=== PATIENT | female | born 1985 | race Caucasian/White ===

== ENCOUNTER → 2016-02-11 | Outpatient (CLI) | payer OTHER ==
[~2016-02-11] MED LIST: ADAL40KI SQ; ALBU18002 INH; BCPILLS PO; CLON0.5T3 PO; DICY10CA12 PO; DIPH1TAB PO; DULO60CA44 PO; EFF75 PO; EPP3/2 IM; ESZO1TAB21 PO; FEXO1TAB49 PO; HYDR-5688 PO; LEVOIUD IU; LISD20CA PO; MESA1.2T PO; MISCCAP80 PO; MRC50 PO; PRED50TA PO; TOPI50TA16 PO; TRMCR130WC TOP; VENL150C56 PO; ZOLP10TA PO
[2016-02-11 14:47] LABS: BASO % 0.1 %; BASO ABS # 0.01 K/uL (0-0.2); COMPLETE YES; EOS % 0.3 %; IG% 0.6 %; LYMPH % 14.7 %; LYMPH ABS # 1.32 K/uL (1.2-3.4); MEAN CELL VOLUME 106.5 fL (80-100); MEAN CORPUSCULAR HEMOGLOBIN 33.8 pg (25-34); MEAN CORPUSCULAR HGB CONC 31.7 g/dl (32-36); MEAN PLATELET VOLUME 10.2 fL (7.4-10.4); MONO % 1.9 %; NEUT % 82.4 %; PLATELET COUNT 346 K/uL (130-400); RED BLOOD COUNT 3.85 M/uL (4.2-5.4); WHITE BLOOD COUNT 8.96 K/uL (4.8-10.8)
[2016-02-11 15:01] LABS: ALT/SGPT 35 U/L (12-78); AST/SGOT 13 U/L (15-37); BLOOD UREA NITROGEN 12 mg/dl (7-18); BUN/CREATININE RATIO 13.9 (10-20); CALCIUM 8.8 mg/dl (8.5-10.1); CARBON DIOXIDE 23 mmol/L (21-32); CHLORIDE 106 mmol/L (98-107); CREATININE 0.88 mg/dl (0.60-1.20); GLUCOSE 162 mg/dl (70-99); POTASSIUM 4.2 mmol/L (3.5-5.1); SODIUM 138 mmol/L (136-145)
[2016-02-11 15:04] LABS: ALB/GLOB RATIO 1.1 (0.9-2); ALKALINE PHOSPHATASE 39 U/L (45-117)
== END | disposition home or self-care (01) ==
LOC: C.LAB1850 12:38
PROVIDERS: ATTEND Internal Medicine
DX: K51.90 Ulcerative colitis, unspecified, without complications (principal)

== ENCOUNTER → 2016-02-23 | Outpatient (CLI) | payer OTHER ==
[2016-02-23 13:22] LABS: BASO % 0.3 %; BASO ABS # 0.02 K/uL (0-0.2); COMPLETE YES; EOS % 0.5 %; HEMATOCRIT 42.1 % (37-47); IG% 0.5 %; LYMPH % 11.8 %; LYMPH ABS # 0.89 K/uL (1.2-3.4); MEAN CELL VOLUME 107.4 fL (80-100); MEAN CORPUSCULAR HEMOGLOBIN 34.9 pg (25-34); MEAN CORPUSCULAR HGB CONC 32.5 g/dl (32-36); MEAN PLATELET VOLUME 10.1 fL (7.4-10.4); MONO % 2.8 %; NEUT % 84.1 %; PLATELET COUNT 301 K/uL (130-400); RED BLOOD COUNT 3.92 M/uL (4.2-5.4); WHITE BLOOD COUNT 7.53 K/uL (4.8-10.8)
[2016-02-23 13:59] LABS: ALT/SGPT 58 U/L (12-78); BLOOD UREA NITROGEN 9 mg/dl (7-18); BUN/CREATININE RATIO 11.9 (10-20); C-REACTIVE PROTEIN < 0.29 mg/dl (0-0.29); CALCIUM 9.4 mg/dl (8.5-10.1); CARBON DIOXIDE 23 mmol/L (21-32); CHLORIDE 103 mmol/L (98-107); CREATININE 0.77 mg/dl (0.60-1.20); GLUCOSE 127 mg/dl (70-99); POTASSIUM 4.1 mmol/L (3.5-5.1); SODIUM 136 mmol/L (136-145)
[2016-02-23 14:10] LABS: ALB/GLOB RATIO 1.3 (0.9-2); ALKALINE PHOSPHATASE 43 U/L (45-117); AST/SGOT 29 U/L (15-37); RHEUMATOID FACTOR < 10.0 U/mL (0-15)
== END | disposition home or self-care (01) ==
LOC: C.LAB1850 12:35
PROVIDERS: ATTEND Registered Nurse
DX: K51.90 Ulcerative colitis, unspecified, without complications (principal); M25.50 Pain in unspecified joint

== ENCOUNTER → 2016-02-28 | Outpatient (CLI) | payer OTHER ==
[2016-02-28 15:52] LABS: FERRITIN 77.3 ng/ml (8.0-388.0)
== END | disposition home or self-care (01) ==
LOC: C.LAB1850 14:24
PROVIDERS: ATTEND Internal Medicine
DX: K51.90 Ulcerative colitis, unspecified, without complications (principal)

== ENCOUNTER → 2016-03-28 | Outpatient (CLI) | payer OTHER ==
[2016-03-28 12:28] LABS: BASO % 0.5 %; BASO ABS # 0.03 K/uL (0-0.2); COMPLETE YES; EOS % 4.5 %; HEMATOCRIT 40.7 % (37-47); IG% 0.3 %; LYMPH % 44.5 %; LYMPH ABS # 2.65 K/uL (1.2-3.4); MEAN CORPUSCULAR HEMOGLOBIN 35.7 pg (25-34); MEAN CORPUSCULAR HGB CONC 34.6 g/dl (32-36); MEAN PLATELET VOLUME 10.5 fL (7.4-10.4); MONO % 4.5 %; NEUT % 45.7 %; PLATELET COUNT 291 K/uL (130-400); RED BLOOD COUNT 3.95 M/uL (4.2-5.4); WHITE BLOOD COUNT 5.95 K/uL (4.8-10.8)
[2016-03-28 12:57] LABS: ALT/SGPT 33 U/L (12-78); AST/SGOT 15 U/L (15-37); BLOOD UREA NITROGEN 11 mg/dl (7-18); BUN/CREATININE RATIO 12.5 (10-20); C-REACTIVE PROTEIN < 0.29 mg/dl (0-0.29); CALCIUM 8.8 mg/dl (8.5-10.1); CARBON DIOXIDE 27 mmol/L (21-32); CHLORIDE 107 mmol/L (98-107); CREATININE 0.84 mg/dl (0.60-1.20); GLUCOSE 96 mg/dl (70-99); POTASSIUM 3.7 mmol/L (3.5-5.1); SODIUM 142 mmol/L (136-145)
[2016-03-28 13:00] LABS: ALKALINE PHOSPHATASE 45 U/L (45-117)
== END | disposition home or self-care (01) ==
LOC: C.LAB1850 11:11
PROVIDERS: ATTEND Internal Medicine
DX: K51.90 Ulcerative colitis, unspecified, without complications (principal)

== ENCOUNTER 2016-04-04 13:44 | Emergency (ER) | payer OTHER ==
[~2016-04-04] VITALS: Ht 175.3 cm; Wt 110.3 kg
[~2016-04-04 13:44] MED LIST changes: -ADAL40KI SQ; -DULO60CA44 PO; -ESZO1TAB21 PO; -HYDR-5688 PO; -LEVOIUD IU; -LISD20CA PO; -MRC50 PO; -PRED50TA PO; -TRMCR130WC TOP
[2016-04-04 13:48] VITALS: TEMP 36.9; Ht 175.3 cm; Wt 110.3 kg
[2016-04-04] MEDS ORDERED: ADAL40KI SQ (14:41)
[2016-04-04] MEDS ORDERED: ESZO1TAB21 PO (14:41)
[2016-04-04] MEDS ORDERED: MRC50 PO (14:41)
[2016-04-04] MEDS ORDERED: LISD20CA PO (14:41)
[2016-04-04] MEDS ORDERED: ONDANSETRON INJ 2 MG/ML 2 ML VIAL IV STA ×2 (15:39→18:17)
[2016-04-04] MEDS ORDERED: SODIUM CHLORIDE 0.9% 1000ML 1,000 ML IV ONE (15:45)
[2016-04-04] MEDS ORDERED: MoRPHine SULFATE 4 MG/ML 1 ML CARP\\VIAL IV ONE ×2 (15:45→17:45)
[2016-04-04 16:23] LABS: HEMATOCRIT 40.3 % (37-47); MEAN CELL VOLUME 101.3 fL (80-100); MEAN CORPUSCULAR HEMOGLOBIN 35.2 pg (25-34); MEAN CORPUSCULAR HGB CONC 34.7 g/dl (32-36); MEAN PLATELET VOLUME 9.5 fL (7.4-10.4); PLATELET COUNT 283 K/uL (130-400); RED BLOOD COUNT 3.98 M/uL (4.2-5.4); WHITE BLOOD COUNT 10.37 K/uL (4.8-10.8)
--- NOTE | 2016-04-04 16:39 | DIAGNOSTIC IMAGING REPORT ---
CHEST 2 VIEWS ROUTINE CLINICAL HISTORY: Chest wall pains. Newly on Humira. COMPARISON STUDY: No previous studies for comparison. FINDINGS: The cardiac and mediastinal contours are normal. There is no evidence of focal pulmonary consolidation. There is no evidence of failure. No pleural effusions are visualized.[ IMPRESSION: No active disease in the chest. Electronically signed by: Quentin Alvarado M.D. 04/04/2016 4:38 PM Dictated Date/Time: 04/04/2016 4:37 PM
--- NOTE | 2016-04-04 16:41 | DIAGNOSTIC IMAGING REPORT ---
PELVIS 1 OR 2 VIEW ROUTINE CLINICAL HISTORY: Pelvic pain. Newly on Humira COMPARISON STUDY: No previous studies for comparison. FINDINGS: No fractures are visualized. The joint spaces appear well-preserved. There are no erosive or destructive changes. IMPRESSION: Unremarkable bony pelvis Electronically signed by: Quentin Alvarado M.D. 04/04/2016 4:40 PM Dictated Date/Time: 04/04/2016 4:39 PM
[2016-04-04 16:47] LABS: C-REACTIVE PROTEIN 2.01 mg/dl (0-0.29); CALCIUM 9.1 mg/dl (8.5-10.1); CREATININE 0.79 mg/dl (0.60-1.20); POTASSIUM 3.9 mmol/L (3.5-5.1)
[2016-04-04 16:50] LABS: ALB/GLOB RATIO 0.9 (0.9-2)
[2016-04-04 16:53] LABS: BASO % 0.3 %; BASO ABS # 0.03 K/uL (0-0.2); COMPLETE YES; EOS % 1.8 %; IG% 0.2 %; LYMPH % 16.1 %; LYMPH ABS # 1.67 K/uL (1.2-3.4); MONO % 6.1 %; NEUT % 75.5 %
[2016-04-04] MEDS ORDERED: HYDR-5688 PO (17:44)
[2016-04-04] MEDS ORDERED: DiphenhydrAMINE HCL 50 MG/ML VIAL IV STA (18:30)
[2016-04-04 19:10] VITALS: BP 156/94; PULSE 92; O2SAT 100
[2016-04-04] MEDS ORDERED: NORCO 5/325MG HOME PACK ONE (19:10)
[2016-04-04] MEDS ORDERED: NORCO 5/325MG HOME PACK PO ONE (19:15)
[2016-04-04] MEDS ORDERED: ONDANSETRON HOME PACK 4MG OD TAB PO ONE (19:15)
--- NOTE | 2016-04-04 21:28 | EMERGENCY ROOM VISIT NOTE ---
History First contact with patient: 15:19 Chief Complaint: PAIN (GENERALIZED) Stated Complaint: SEVERE PAIN, HIP, SHOULDER AND CHEST History of Present Illness The patient is a 30 year old female who presents to the Emergency Room with complaints of generalized body aches particularly of her shoulders and hips for the past several months. The patient states that her symptoms have slowly worsened over the past week, and that she had 3 episodes of vomiting today because of her pain. She states that she does have left-sided upper chest wall pain with deep inspiration. The patient has a history of ulcerative colitis and is recently on Humira. Her symptoms essentially began at the onset of her Humira dosings which were started about 3 months ago. The patient last received an injection about one week ago, and this has distinctly exacerbated her symptoms. She has not had fever or chills. No signs of infection. She has followed with her primary care physician for this and has been on Celebrex for the pain without significant improvement of her symptoms. The patient does not report distinct injury or trauma. No fevers. She rates her discomfort an 8 /10 that worsens with movement. Review of Systems More than 10 systems were reviewed and otherwise negative with the exception of history of present illness. Past Medical/Surgical History Medical Problems: (1) Abdominal pain (2) Depression (3) Gastroenteritis (4) Hypomagnesemia (5) Ovarian cyst (6) Panic attacks (7) Ulcerative colitis (8) Vomiting Family History No pertinent family history Social History Smoking Status: Never Smoker Marital Status: Housing Status: lives with significant other Current/Historical Medications Scheduled Adalimumab (Humira Pen), Unknown Dose SQ EVERY OTHER WEEK Control Pills ( Control Pills), 1 TAB PO HS Epinephrine (Epipen), 0.3 MG IM UD Eszopiclone (Eszopiclone), 3 MG PO PM Fexofenadine Hcl (Lori Allergy), 1 TAB PO QAM Lisdexamfetamine Dimesylate (Vyvanse), 20 MG PO DAILY Mercaptopurine (Mercaptopurine), 100 MG PO QAM Mesalamine (Lialda), 2 TAB PO BID Probiotic Product (Probiotic), 1 CAP PO QAM Venlafaxine Hcl (Effexor Extended Rel), 150 MG PO QAM Scheduled PRN Albuterol Sulfate (Proair Respiclick), 1 PUFF INH QID PRN for Shortness of Breath Clonazepam (Klonopin), 0.5 MG PO BID PRN for Anxiety Dicyclomine Hcl (Dicyclomine Hcl), 1 CAP PO TID PRN for STOMACH Diphenhydramine Hcl (Benadryl Allergy), 25 MG PO TID PRN for ALLERGIES Hydrocodone/Acetaminophen 5MG/325MG ([place] 5MG/325MG), 1 TABLET PO Q6 PRN for Pain Allergies Coded Allergies: NUTS (Verified Allergy, Severe, ANAPHYLACTIC SHOCK, 04/04/16) Peanut (Verified Allergy, Severe, ANAPHYLACTIC, 04/04/16) Sulfa Drugs (Verified Allergy, Severe, SHORTNESS OF BREATH, 04/04/16) Animal Dander (Verified Allergy, Unknown, SOB HIVES, 04/04/16) CATS AND HORSES Fish (Verified Allergy, Unknown, VOMITTING, 04/04/16) Molds & Smuts (Verified Allergy, Unknown, SOB SNEEZING, 04/04/16) POLLEN (Verified Allergy, Unknown, RUNNY NOSE SOB, 04/04/16) [place] (Verified Adverse Reaction, Unknown, ITCHY MOUTH, 04/04/16) Physical Exam Vital Signs Date Time Temp Pulse Resp B/P Pulse Ox O2 Delivery O2 Flow Rate FiO2 04/04/16 19:10 92 16 156/94 100 Room Air 04/04/16 18:42 78 18 159/100 98 Room Air 04/04/16 14:40 103 119/85 96 04/04/16 13:48 36.9 96 18 136/79 96 Room Air Physical Exam VITALS: Vitals are noted on the nurse's note and reviewed by myself. Vital signs stable. GENERAL: Well-developed, well-nourished, anxious appearing female who is cooperative with the examination. HEAD: Normocephalic atraumatic. EARS: External ear normal. External auditory canals clear, tympanic membranes pearly mclaughlin without erythema or effusion bilaterally. EYES: Pupils equal round and reactive to light and accommodation. Conjunctivae without injection, sclerae without icterus. Extraocular movements intact. NOSE: Patent, turbinates without inflammation or discharge. MOUTH: Mucous membranes moist. Tonsils are not enlarged. Pharynx without erythema, blood, or exudate. Uvula midline. Airway patent. NECK: Supple without nuchal rigidity. No lymphadenopathy. No thyromegaly. Cervical spine is nontender. HEART: Regular rate and rhythm without murmurs gallops or rubs. LUNGS: Clear to auscultation bilaterally without wheezes, rales or rhonchi. No retractions or accessory muscle use. ABDOMEN: Positive normal bowel sounds x 4. Soft, nontender, without masses or organomegaly. No guarding or rebound tenderness. MUSCULOSKELETAL: No muscle atrophy, erythema, or edema noted. Full range of motion without joint tenderness in all extremities. Generalized tenderness appreciated throughout the bilateral shoulders and hips. There is chest wall tenderness on palpation. No rashes or lesions. NEURO: Patient was alert and oriented to person place and time. CN II through XII grossly intact. Medical Decision & Procedures ER Provider Diagnostic Interpretation: CHEST 2 VIEWS ROUTINE CLINICAL HISTORY: Chest wall pains. Newly on Humira. COMPARISON STUDY: No previous studies for comparison. FINDINGS: The cardiac and mediastinal contours are normal. There is no evidence of focal pulmonary consolidation. There is no evidence of failure. No pleural effusions are visualized.[ IMPRESSION: No active disease in the chest. PELVIS 1 OR 2 VIEW ROUTINE CLINICAL HISTORY: Pelvic pain. Newly on Humira COMPARISON STUDY: No previous studies for comparison. FINDINGS: No fractures are visualized. The joint spaces appear well-preserved. There are no erosive or destructive changes. IMPRESSION: Unremarkable bony pelvis Laboratory Results 04/04/16 16:15 Red Blood Count 3.98, Mean Corpuscular Volume 101.3, Mean Corpuscular Hemoglobin 35.2, Mean Corpuscular Hemoglobin Concent 34.7, Mean Platelet Volume 9.5, Neutrophils (%) (Auto) 75.5, Lymphocytes (%) (Auto) 16.1, Monocytes (%) ( Auto) 6.1, Eosinophils (%) (Auto) 1.8, Basophils (%) (Auto) 0.3, Neutrophils # ( Auto) 7.83, Lymphocytes # (Auto) 1.67, Monocytes # (Auto) 0.63, Eosinophils # ( Auto) 0.19, Basophils # (Auto) 0.03 04/04/16 16:15 Test 04/04/16 16:15 White Blood Count 10.37 K/uL (4.8-10.8) Red Blood Count 3.98 M/uL (4.2-5.4) Hemoglobin 14.0 g/dL (12.0-16.0) Hematocrit 40.3 % (37-47) Mean Corpuscular Volume 101.3 fL (80-100) Mean Corpuscular Hemoglobin 35.2 pg (25-34) Mean Corpuscular Hemoglobin Concent 34.7 g/dl (32-36) Platelet Count 283 K/uL (130-400) Mean Platelet Volume 9.5 fL (7.4-10.4) Neutrophils (%) (Auto) 75.5 % Lymphocytes (%) (Auto) 16.1 % Monocytes (%) (Auto) 6.1 % Eosinophils (%) (Auto) 1.8 % Basophils (%) (Auto) 0.3 % Neutrophils # (Auto) 7.83 K/uL (1.4-6.5) Lymphocytes # (Auto) 1.67 K/uL (1.2-3.4) Monocytes # (Auto) 0.63 K/uL (0.11-0.59) Eosinophils # (Auto) 0.19 K/uL (0-0.5) Basophils # (Auto) 0.03 K/uL (0-0.2) RDW Standard Deviation 51.0 fL (36.4-46.3) RDW Coefficient of Variation 13.7 % (11.5-14.5) Immature Granulocyte % (Auto) 0.2 % Immature Granulocyte # (Auto) 0.02 K/uL (0.00-0.02) Red Blood Cell Morphology Unremarkable Erythrocyte Sedimentation Rate 29 mm/hr (0-21) Anion Gap 11.0 mmol/L (3-11) Est Creatinine Clear Calc Drug Dose 139.1 ml/min Estimated GFR () 117.2 Estimated GFR (Non- 101.2 BUN/Creatinine Ratio 17.0 (10-20) Calcium Level 9.1 mg/dl (8.5-10.1) Total Bilirubin 0.3 mg/dl (0.2-1) Aspartate Amino Transf (AST/SGOT) 17 U/L (15-37) Alanine Aminotransferase (ALT/SGPT) 28 U/L (12-78) Alkaline Phosphatase 47 U/L (45-117) Total Creatine Kinase 60 U/L (26-192) C-Reactive Protein 2.01 mg/dl (0-0.29) Total Protein 7.7 gm/dl (6.4-8.2) Albumin 3.7 gm/dl (3.4-5.0) Globulin 4.0 gm/dl (2.5-4.0) Albumin/Globulin Ratio 0.9 (0.9-2) Lipase 148 U/L (73-393) Medications Administered Medications (Trade) Dose Ordered Sig/[place] Route Start Time Stop Time Status Last Admin Dose Admin Sodium Chloride (Nss 1000ml) 1,000 ml @ 999 mls/hr Q1H1M ONCE IV 04/04/16 15:45 04/04/16 16:45 DC 04/04/16 16:54 999 MLS/HR Morphine Sulfate (MoRPHine SULFATE INJ) 4 mg NOW ONCE IV 04/04/16 15:45 04/04/16 15:46 DC 04/04/16 16:53 4 MG Ondansetron HCl (Zofran Inj) 4 mg NOW STAT IV 04/04/16 15:39 04/04/16 15:41 DC 04/04/16 16:53 4 MG Morphine Sulfate (MoRPHine SULFATE INJ) 4 mg NOW ONCE IV 04/04/16 17:45 04/04/16 17:46 DC 04/04/16 17:45 4 MG Ondansetron HCl (Zofran Inj) 4 mg NOW STAT IV 04/04/16 18:17 04/04/16 18:18 DC 04/04/16 18:42 4 MG Diphenhydramine HCl (Benadryl Inj) 50 mg NOW STAT IV 04/04/16 18:30 04/04/16 18:31 DC 04/04/16 18:42 50 MG Ondansetron HCl (ZOFRAN ODT 4MG Home Pack) 1 homepack UD ONCE PO 04/04/16 19:15 04/04/16 19:16 DC 04/04/16 19:18 1 HOMEPACK Acetaminophen/ Hydrocodone Bitart ([place] 5/325mg Home Pack) 1 homepack STK-MED ONCE .ROUTE 04/04/16 19:10 04/04/16 19:14 DC 04/04/16 19:17 1 HOMEPACK ED Course Physical exam and history were performed. Nursing notes and EMR were reviewed. Patient appears to have generalized body aches after starting Humira several months ago. Her symptoms have worsened over the past week since her last injection. The patient has been following with her primary care physician for this. She states that certain motions, standing, twisting, and other physical maneuvers worsen her discomfort. IV access was established and labs were obtained. The patient was hydrated with normal saline and given IV morphine and IV Zofran for her symptoms. I did elect performed plain films of her chest and pelvis as this is where she is having much of her discomfort. The patient's blood work is as above and was reviewed. She does not have a significantly elevated white blood cell count, anemia, bandemia, or gross electrolyte imbalance. CK is not elevated. Her inflammatory markers are slightly elevated, but this was expected as she does have ulcerative colitis. X -rays do not show evidence of acute fracture or bony concerns. The patient continued to have nausea symptoms here in the department, and I did provide her additional Zofran. She was also given additional morphine, which did make her itchy, and this was treated with IV Benadryl. Overall the patient had significant improvement of her discomfort with the above interventions. I suspect her discomfort is from her medication and should improve with time. I will give her a short course of Vicodin for further pain control. I recommend that she follow with her primary care physician and her oliving machine operator who prescribed the medication. The patient was otherwise invited back to ER with any new, worsening, or concerning symptoms. The chart was completed utilizing [employer] Speech Voice Recognition Software. Grammatical errors, random word insertions, pronoun errors, and incomplete sentences are an occasional consequence of this system due to software limitations, ambient noise, and hardware issues. Any formal questions or concerns about the content, text, or information contained within the body of this dictation should be directly addressed to the provider for clarification. . Medical Decision Differential diagnosis: Etiologies such as metabolic, infection, hypo/hyperglycemia, electrolyte abnormalities, cardiac sources, intracerebral event, toxicologic, neurologic, as well as others were entertained. Impression Primary Impression: Generalized pain Additional Impressions: Medication reaction Nausea & vomiting Departure Information Prescriptions Hydrocodone/Acetaminophen 5MG/325MG ([place] 5MG/325MG) Tab 1 TABLET PO Q6 Y for Pain, #12 TAB For Initial Treatment Prov: Eric Gillespie PA-C 04/04/16 Referrals Madelyn Elias PA (PCP) Patient Instructions [facility] Problem Qualifiers
== END 2016-04-04 19:15 | disposition home or self-care (01) ==
LOC: C.EDB 13:45 → C.EDD 19:15
DX: R52 Pain, unspecified (principal); R11.2 Nausea with vomiting, unspecified; T39.4X5A Adverse effect of antirheumatics, not elsewhere classified, initial encounter; F32.9 Major depressive disorder, single episode, unspecified

== ENCOUNTER → 2016-04-25 | Outpatient (CLI) | payer OTHER ==
[~2016-04-25] MED LIST changes: +ADAL40KI SQ; +DULO60CA44 PO; -EFF75 PO; +ESZO1TAB21 PO; +HYDR-5688 PO; +LEVOIUD IU; +LISD20CA PO; +MRC50 PO; +PRED50TA PO; -TOPI50TA16 PO; +TRMCR130WC TOP; -ZOLP10TA PO
--- NOTE | 2016-04-25 09:57 | DIAGNOSTIC IMAGING REPORT ---
LEFT HAND MIN 3 VIEWS ROUTINE CLINICAL HISTORY: 51.90 Ulcerative [id number] Arthralgia of multiple [id number] pain COMPARISON: None. DISCUSSION: The bones and joint spaces appear intact. There is no evidence of fracture, dislocation or bony disease. There is no evidence for soft tissue swelling. IMPRESSION: Negative study. Electronically signed by: Kevin Arechiga M.D. 04/25/2016 9:56 AM Dictated Date/Time: 04/25/2016 9:56 AM
--- NOTE | 2016-04-25 10:01 | DIAGNOSTIC IMAGING REPORT ---
RIGHT HAND MIN 3 VIEWS ROUTINE CLINICAL HISTORY: Pain. Arthralgias. Ulcerative colitis. COMPARISON: None. DISCUSSION: The bony mineralization appears normal. No fractures are visualized. There is no erosive disease. IMPRESSION: No bony abnormalities identified. Electronically signed by: Quentin Alvarado M.D. 04/25/2016 10:00 AM Dictated Date/Time: 04/25/2016 9:59 AM
--- NOTE | 2016-04-25 10:01 | DIAGNOSTIC IMAGING REPORT ---
RIGHT FOOT MIN 3 VIEWS ROUTINE CLINICAL HISTORY: 51.90 Ulcerative [id number] Arthralgia of multiple [id number] Right pain COMPARISON: None. DISCUSSION: The bones and joint spaces appear intact. There is no evidence of fracture, dislocation or bony disease. Small heel spur. IMPRESSION: Small heel spur. Otherwise negative study Electronically signed by: Kevin Arechiga M.D. 04/25/2016 10:00 AM Dictated Date/Time: 04/25/2016 9:58 AM
[2016-04-25 10:19] LABS: BASO % 0.4 %; BASO ABS # 0.03 K/uL (0-0.2); COMPLETE YES; EOS % 9.8 %; HEMATOCRIT 38.7 % (37-47); IG% 0.3 %; LYMPH % 36.7 %; LYMPH ABS # 2.85 K/uL (1.2-3.4); MEAN CELL VOLUME 102.7 fL (80-100); MEAN CORPUSCULAR HEMOGLOBIN 36.6 pg (25-34); MEAN CORPUSCULAR HGB CONC 35.7 g/dl (32-36); MEAN PLATELET VOLUME 10.2 fL (7.4-10.4); MONO % 6.8 %; PLATELET COUNT 330 K/uL (130-400); RED BLOOD COUNT 3.77 M/uL (4.2-5.4); WHITE BLOOD COUNT 7.76 K/uL (4.8-10.8)
[2016-04-25 10:58] LABS: ALT/SGPT 28 U/L (12-78); AST/SGOT 13 U/L (15-37); BLOOD UREA NITROGEN 13 mg/dl (7-18); BUN/CREATININE RATIO 16.6 (10-20); CALCIUM 9.1 mg/dl (8.5-10.1); CARBON DIOXIDE 24 mmol/L (21-32); CHLORIDE 105 mmol/L (98-107); CREATININE 0.77 mg/dl (0.60-1.20); GLUCOSE 107 mg/dl (70-99); POTASSIUM 3.6 mmol/L (3.5-5.1); SODIUM 138 mmol/L (136-145)
[2016-04-25 11:01] LABS: ALKALINE PHOSPHATASE 46 U/L (45-117)
[2016-04-28 12:36] LABS: ALBUMIN 4.1 G/DL (3.8-4.8); CYCLIC CITRULLINATED PEPT IGG <16 UNITS (<20); HLA-B27** TC 528X NEGATIVE (NEGATIVE); MYELOPEROXIDASE AB <1.0 AI (<1.0); PARVOVIRUS IgG INDEX 0.5 (<0.9); PARVOVIRUS IgM INDEX 0.2 (<0.9); TOTAL PROTEIN 7.1 G/DL (6.2-8.3)
== END | disposition home or self-care (01) ==
LOC: C.RAD1850 09:09
PROVIDERS: ATTEND Internal Medicine Rheumatology
DX: E55.9 Vitamin D deficiency, unspecified (principal); K51.90 Ulcerative colitis, unspecified, without complications; M25.50 Pain in unspecified joint; M94.0 Chondrocostal junction syndrome [Tietze]; Z92.29 Personal history of other drug therapy; M77.31 Calcaneal spur, right foot

== ENCOUNTER → 2016-04-28 | Outpatient (CLI) | payer OTHER ==
--- NOTE | 2016-04-28 16:00 | DIAGNOSTIC IMAGING REPORT ---
WHOLE BODY BONE SCAN HISTORY: K51.90 Ulcerative [id number] Arthralgia of multiple [id number]. RADIOTRACER: 26.4 mCi Tc-99m MDP STUDY/IMAGES: Planar anterior and posterior whole body imaging was performed 3 hours following the intravenous administration of radiotracer. COMPARISON: Right foot and bilateral hands 04/25/2016. Chest 04/04/2016 FINDINGS: Small foci of radiotracer uptake seen within the shoulders knees and feet is likely within the range of normal limits. No suspicious areas of abnormal radiotracer uptake seen within the axial or appendicular skeleton. Suspect a May[place]a catheter in place. IMPRESSION: No sites of abnormal radiotracer uptake within the axial or appendicular skeleton. Electronically signed by: Eddie Jaimes M.D. 04/28/2016 3:58 PM Dictated Date/Time: 04/28/2016 3:55 PM
== END | disposition home or self-care (01) ==
LOC: C.NUCL 12:29
PROVIDERS: ATTEND Internal Medicine Rheumatology
DX: M25.50 Pain in unspecified joint (principal); M94.0 Chondrocostal junction syndrome [Tietze]; Z92.29 Personal history of other drug therapy; K51.90 Ulcerative colitis, unspecified, without complications; E55.9 Vitamin D deficiency, unspecified

== ENCOUNTER 2016-10-10 00:53 | Emergency (ER) | payer OTHER ==
[~2016-10-10] VITALS: Ht 175.3 cm; Wt 105.1 kg
[~2016-10-10 00:53] MED LIST changes: -DULO60CA44 PO; -HYDR-5688 PO; -LEVOIUD IU; -PRED50TA PO; -TRMCR130WC TOP
[2016-10-10 01:00] VITALS: TEMP 36.5; Ht 175.3 cm; Wt 105.1 kg
[2016-10-10 01:04] VITALS: O2SAT 94
[2016-10-10] MEDS ORDERED: RANITIDINE HCL 50 MG/100 ML D5W IV STA (01:11)
[2016-10-10] MEDS ORDERED: EPINEPHRINE ADULT AUTO-INJECT 0.3 MG SYR IM ONE (01:15)
[2016-10-10] MEDS ORDERED: DEXAMETHASONE SOD INJ 10 MG/ML VIAL IV ONE (01:15)
[2016-10-10] MEDS ORDERED: TRMCR130WC TOP (01:44)
[2016-10-10] MEDS ORDERED: LEVOIUD IU (01:45)
[2016-10-10] MEDS ORDERED: DULO60CA44 PO (01:45)
[2016-10-10] MEDS ORDERED: PRED50TA PO (02:11)
[2016-10-10 02:41] VITALS: BP 118/64; PULSE 78; O2SAT 98
--- NOTE | 2016-10-10 03:08 | EMERGENCY ROOM VISIT NOTE ---
History First contact with patient: 00:59 Chief Complaint: ALLERGIC REACTION Stated Complaint: ALLERGIC REACTION Nursing Triage Summary: Patient reports that she is "very itchy, having a hard time breathing. I think i'm allergic to semen." Patient states that she has had small reactions to it in the past but tonight is far worse. Denies contact with anything else that she is allergic to. History of Present Illness The patient is a 30 year old female who presents to the Emergency Room with complaints of allergic reaction after intercourse. Patient states she had oral intercourse and vaginal intercourse and her partner ejaculated in her and she started to have an allergic reaction. Patient states she has had allergic reactions before with semen. This is the first time she has not used a condom with her current partner. Patient states that other partners she's had allergic reactions from their semen. Patient has multiple allergies. He foods soaps or detergents. Patient complains of some throat discomfort with rash and itching. Patient denies chest pain, facial swelling, tongue swelling, feeling of impending doom, abdominal pain, nausea, vomiting, diarrhea. Patient took Benadryl just prior to arrival. Patient also states that her partner has not had any nuts or foods that she is allergic to. Review of Systems See HPI for pertinent positives & negatives. A total of 10 systems reviewed and were otherwise negative. Past Medical/Surgical History Medical Problems: (1) Abdominal pain (2) Depression (3) Gastroenteritis (4) Hypomagnesemia (5) Ovarian cyst (6) Panic attacks (7) Ulcerative colitis (8) Vomiting Family History No pertinent family history Social History Smoking Status: Never Smoker Marital Status: Housing Status: lives with significant other Current/Historical Medications Scheduled Duloxetine Hcl (Cymbalta), 60 MG PO DAILY Epinephrine (Epipen), 0.3 MG IM UD Eszopiclone (Eszopiclone), 3 MG PO PM Fexofenadine Hcl (Lori Allergy), 1 TAB PO QAM Levonorgestrel (Iud) (Mirena), 1 DOSE IU CONTINOUS Lisdexamfetamine Dimesylate (Vyvanse), 40 MG PO DAILY Mercaptopurine (Mercaptopurine), 50 MG PO BID Mesalamine (Lialda), 2 TAB PO BID Prednisone (Prednisone), 50 MG PO DAILY Scheduled PRN Albuterol Sulfate (Proair Respiclick), 1 PUFF INH QID PRN for Shortness of Breath Clonazepam (Klonopin), 0.5 MG PO BID PRN for Anxiety Dicyclomine Hcl (Dicyclomine Hcl), 1 CAP PO TID PRN for STOMACH Diphenhydramine Hcl (Benadryl Allergy), 25 MG PO TID PRN for ALLERGIES Triamcinolone Acet (Aristocort 0.1%), 1 APPLN TOP BID PRN for rash Physical Exam Vital Signs Date Time Temp Pulse Resp B/P (MAP) Pulse Ox O2 Delivery O2 Flow Rate FiO2 10/10/16 02:41 78 18 118/64 98 10/10/16 01:11 80 10/10/16 01:07 Room Air 10/10/16 01:04 94 Room Air 10/10/16 01:04 94 Room Air 10/10/16 01:00 36.5 95 18 129/79 94 Room Air Pain Rating (0-10): 0 Physical Exam VITALS: Vitals are noted on the nurse's note and reviewed by myself. Vital signs stable. GENERAL: Pleasant female, in no acute distress, nondiaphoretic, well-developed well-nourished. SKIN: Diffuse erythematous blanchable dermatitis most consistent with allergic reaction The rest of the skin was without rashes, erythema, edema, or bruising. There is no tenting of the skin. Capillary reflex less than 2 seconds. HEAD: Normocephalic atraumatic. No facial swelling. EARS: External auditory canals clear, tympanic membranes pearly mclaughlin without erythema or effusion bilaterally. EYES: Pupils equal round and reactive to light and accommodation. Conjunctivae without injection, sclerae without icterus. Extraocular movements intact. NOSE: Patent, turbinates without inflammation or discharge. MOUTH: Mucous membranes moist. No tongue swelling. Pharynx without erythema or exudate. Uvula midline. Airway patent. Tongue does not deviate. NECK: Supple without nuchal rigidity. No lymphadenopathy. No thyromegaly. Cervical spine is nontender. No JVD. HEART: Regular rate and rhythm without murmurs gallops or rubs. LUNGS: Clear to auscultation bilaterally without wheezes, rales or rhonchi. No dullness to percussion. No retractions or accessory muscle use. ABDOMEN: Positive bowel sounds x 4. Normal tympanic percussion. Soft, nontender, without masses or organomegaly. Rodriguez sign negative. No guarding or rebound tenderness. MUSCULOSKELETAL: No muscle atrophy, erythema, or edema noted. NEURO: Patient was alert and oriented to person place and time. Normal sensation to light and sharp touch. No focal neurological deficits. Medical Decision & Procedures Medications Administered Medications (Trade) Dose Ordered Sig/[place] Route Start Time Stop Time Status Last Admin Dose Admin Ranitidine HCl (zANTac IV) 50 mg NOW STAT IV 10/10/16 01:11 10/10/16 01:14 DC 10/10/16 01:19 50 MG Dexamethasone Sodium Phosphate (Decadron Inj) 10 mg NOW ONCE IV 10/10/16 01:15 10/10/16 01:16 DC 10/10/16 01:19 10 MG Epinephrine (Epipen) 0.3 mg NOW ONCE IM 10/10/16 01:15 10/10/16 01:16 DC 10/10/16 01:20 0.3 MG ED Course Prior records/ancillary studies reviewed. Triage Nursing notes reviewed. Additional history obtained from friend The patient's history was concerning for possible allergic reaction. Differential diagnosis: Etiologies such as allergic reaction, anaphylaxis, urticaria, Mujica-Alonso syndrome, toxic epidermal necrolysis, erythema multiforme, cellulitis, as well as others were entertained. Physical examination: As above. ER treatment provided: Continuous cardiac monitoring Zantac 50 mg IV Decadron 10 mg IV On reassessment the patient felt better. Diagnostic interpretation by me: Deferred It appears the patient had an allergic reaction. Patient was strongly encouraged to use condoms until cleared by the cardiac cath technologist. She is advised not to do oral intercourse or intercourse without condoms until cleared by the cardiac cath technologist. The above treatment did well to reverse the symptoms. After prolonged monitoring and frequent reassessments the patient did very well and symptoms resolved. The patient was counseled on the spectrum of this disease process and told to avoid potential triggers. I gave my usual and customary discussion regarding this issue. By the evaluation outlined above emergent etiologies such as recurring anaphylaxis, anaphylatic shock, airway compromise, Mujica-Alonso syndrome, toxic epidermal necrolysis, erythema multiforme, infectious etiologies, as well as others were deemed relatively unlikely. The pt informed about the findings as listed above. All questions were answered and pleased with the treatment. Return instructions were outlined and the patient was discharged in stable condition. Outpatient prescription management: EpiPen prednisone Referral: The patient was referred back to primary care physician for follow-up in 2-3 days for a recheck of the current condition. or The patient was referred to Allergy/Immunology for further evaluation. Medical Decision As above Medication Reconcilliation Current Medication List: was personally reviewed by me Blood Pressure Screening Patient's blood pressure: Normal blood pressure Impression Primary Impression: Allergic reaction Departure Information Dispostion Home / Self-Care Condition GOOD Prescriptions Prednisone (Prednisone) 50 Mg Tab 50 MG PO DAILY for 4 Days, #4 TAB Prov: Kailey Gupta PA-C 10/10/16 Forms HOME CARE DOCUMENTATION FORM, IMPORTANT VISIT INFORMATION Patient Instructions My [facility], ED Allergic Reaction General Other Additional Instructions DO NOT drive, drink alcohol, operate machinery, or perform dangerous activities today. You were given medications in the ER that can affect your ability to safely function or operate a vehicle. Recommend not to be exposed to your boyfriend's Semen until cleared by the cardiac cath technologist. Epi-Pen: Use one injection as instructed for severe allergic reactions associated with shortness of breath, difficulty breathing, or throat or tongue swelling. If you use this injection call 911 or proceed immediately to the nearest Emergency Room. Prednisone 50mg: Once daily until the prescription is finished. It is best to take this earlier in the day as some patients note occasional difficulty falling asleep when taken in the late evening. Diphenhydramine(Benadryl) 25mg: use 25 to 50 mg every six hours for swelling, itching, or hives. This medication is sedating and will cause drowsiness. Avoid alcohol, operating machinery or dangerous equipment, working on ladders or roofs, DRIVING, or situations where being under the influence may be dangerous. Zantac 75: Take two pills twice a day along with Benadryl as needed for swelling , itching, or hives. Most people know this for its affect on the stomach, but it also acts similar to, but less potent than Benadryl for allergic reactions. Both the Benadryl and the Zantac are available [id number]. Continue current medications. Return to the emergency department for worsening of your rash, swelling of your face, lips, tongue, or throat, difficulty breathing, vomiting, or as needed. Follow-up with your primary care physician in 2 to 3 days for a recheck of your current condition. Problem Qualifiers Primary Impression: Allergic reaction Encounter type: initial encounter Qualified Codes: T78.40XA - Allergy, unspecified, initial encounter
== END 2016-10-10 02:41 | disposition home or self-care (01) ==
LOC: C.EDB 00:55 → C.EDA 02:41
DX: T78.40XA Allergy, unspecified, initial encounter (principal); X58.XXXA Exposure to other specified factors, initial encounter; F32.9 Major depressive disorder, single episode, unspecified; N83.209 Unspecified ovarian cyst, unspecified side; Z87.19 Personal history of other diseases of the digestive system; Z79.899 Other long term (current) drug therapy

== ENCOUNTER → 2017-02-20 | Outpatient (CLI) | payer OTHER ==
[~2017-02-20] MED LIST changes: -ADAL40KI SQ; -BCPILLS PO; -DIPH1TAB PO; +DIPH1TAB87 PO; +DULO60CA44 PO; +LEVO1IUD2 IU; -MISCCAP80 PO; +TRMCR130WC TOP; -VENL150C56 PO
--- NOTE | 2017-02-20 12:26 | DIAGNOSTIC IMAGING REPORT ---
ABDOMEN AND PELVIS CT WITHOUT CONTRAST CT DOSE: 1252.97 mGy.cm HISTORY: History of ulcerative colitis with possible retained foreign body of the rectum.. POSSIBLE RETAINED FOREIGN BODY TECHNIQUE: Multiaxial CT images of the abdomen and pelvis were performed without contrast. A dose lowering technique was utilized adhering to the principles of ALARA. COMPARISON STUDY: CT abdomen and pelvis 12/13/2015. FINDINGS: The lung bases are clear. No pneumatosis or pneumoperitoneum. Imaged inferior cardiac chambers are unremarkable. Hepatic steatosis. No focal hepatic mass lesions or intrahepatic biliary ductal dilation identified. Areas of fatty sparing noted adjacent to the soraya hepatis. Spleen, pancreas, gallbladder and adrenal glands are within normal limits. Kidneys, ureters and urinary bladder are within normal limits. Intrauterine device is noted within the central uterus appears to be properly positioned. 3.8 x 3.2 cm ovoid cystic structure is noted within the region of the right adnexum. Aorta is normal in course and caliber. No bulky adenopathy identified. There is no bowel obstruction or focal bowel wall thickening identified. Small moderate stool ball in the rectum without evidence of rectal foreign body identified. Nondistention involves the mid sigmoid colon. The appendix is not definitively seen. No secondary signs of acute appendicitis. Opaque structures within small bowel the right lower quadrant are noted measuring up to 2.0 cm suggesting ingested tablets. Soft tissues are unremarkable. Bones appear intact. Mild levoscoliosis of the lumbar spine. IMPRESSION: 1. No acute intra-abdominal or intrapelvic abnormality identified, specifically no foreign body identified within the rectum. 2. 3.8 cm cystic structure of the right adnexum suggests ovarian cyst. This could be correlated with pelvic ultrasound. 3. Hepatic steatosis. Electronically signed by: Zach Phillips M.D. 02/20/2017 12:25 PM Dictated Date/Time: 02/20/2017 12:18 PM
== END | disposition home or self-care (01) ==
LOC: C.CTS 11:45
PROVIDERS: ATTEND Physician Assistant
DX: R19.5 Other fecal abnormalities (principal); K76.0 Fatty (change of) liver, not elsewhere classified; R93.8 Abnormal findings on diagnostic imaging of other specified body structures

== ENCOUNTER → 2017-06-11 | Day surgery (SDC) | payer OTHER ==
[2017-06-08 15:03] VITALS: BMI 34.0
[~2017-06-11] VITALS: Ht 175.3 cm; Wt 106.8 kg
[~2017-06-11] MED LIST changes: -CLON0.5T3 PO; -DICY10CA12 PO; -FEXO1TAB49 PO; +HYDR2.5O TOP; +LIDOCAINE HCL 2% 2 ML VIAL (20MG/ML) ONE; -LISD20CA PO; +LISD50CA4 PO; +MELATAB2 PO; +PROPOFOL IV EMULSION 10 MG/ML 20 ML VIAL ONE; +SODIUM CHLORIDE 0.9% 500ML 500 ML IV ONE; +VALE530C3 PO; +[UNRECOGNIZED DRUG - OTHER] PO
[2017-06-11 08:23] VITALS: Ht 175.3 cm; Wt 106.8 kg
--- NOTE | 2017-06-11 09:01 | Endo History and Physical ---
History & Physical Date of Service: June 11, 2017. Chief Complaint: ULCERATIVE COLITIS Referring Physician: DR. CARRIE ZEPEDA History of Present Illness UC Past Surgical History Hx Cardiac Surgery: No Hx Internal Defibrillator: No Hx Pacemaker: No Hx Abdominal Surgery: No Hx of Implantable Prosthesis: No Hx Post-Op Nausea and Vomiting: No Hx Cancer Surgery: No Hx Thoracic Surgery: No Hx Orthopedic: No Hx Urinary Tract Surgery: No Family History Polyp, IBD Social History Smoking Status: Never Smoker Hx Substance Use: Yes (TRIED MARIJUANA, HAS NOT USED RECENTLY) Hx Alcohol Use: Yes (OCCASIONAL) Allergies Coded Allergies: NUTS (Verified Allergy, Severe, ANAPHYLACTIC SHOCK, 06/08/17) Peanut (Verified Allergy, Severe, ANAPHYLACTIC, 06/08/17) Sulfa Drugs (Verified Allergy, Severe, SHORTNESS OF BREATH, 06/08/17) Animal Dander (Verified Allergy, Unknown, SOB HIVES, 06/08/17) CATS AND HORSES Fish (Verified Allergy, Unknown, VOMITTING, 06/08/17) Molds & Smuts (Verified Allergy, Unknown, SOB SNEEZING, 06/08/17) POLLEN (Verified Allergy, Unknown, RUNNY NOSE SOB, 06/08/17) [place] (Verified Adverse Reaction, Unknown, ITCHY MOUTH, 06/08/17) Uncoded Allergies: SEMEN (Allergy, Unknown, RASH, 10/10/16) Current Medications Reported Home Medications Medications Dose Route/Sig Max Daily Dose Days Date Category Hydrocortisone (Hydrocortisone (Topical)) 2.5 % Oin TOP BID 10 06/08/17 Reported Vyvanse (Lisdexamfetamine Dimesylate) 50 Mg Cap 1 Cap PO DAILY 30 06/08/17 Reported [Moodboost] 1 Tab PO DAILY 06/08/17 Reported Valerian Root (Valerian (Valeriana Officinali) 530 Mg Cap 1 Tab PO DAILY 06/08/17 Reported Melatonin Maximum Strengt (Melatonin) 5 Mg Tab 2 Tab PO HS 30 06/08/17 Reported Mirena (Levonorgestrel (Iud)) 20 Mcg/24 Hr Iud 1 Dose IU CONTINOUS 10/10/16 Reported Cymbalta (Duloxetine Hcl) 60 Mg Cap 60 Mg PO DAILY 10/10/16 Reported Aristocort 0.1% (Triamcinolone Acet) 90 Appln/30 Gm Cr 1 Appln TOP BID PRN 10/10/16 Reported Eszopiclone 3 Mg Tab 3 Mg PO PM 04/04/16 Reported Mercaptopurine 50 Mg Tab 100 Mg PO DAILY 04/04/16 Reported Proair Respiclick (Albuterol Sulfate) 108 Mcg/Act Aer 1 Puff INH QID PRN 12/14/15 Reported Lialda (Mesalamine) 1.2 Gm Tab 2 Tab PO BID 12/14/15 Reported Epipen (Epinephrine) 0.3 Mg/0.3 Ml Inj 0.3 Mg IM UD 12/14/15 Reported Benadryl Allergy (Diphenhydramine Hcl) 25 Mg Tab 25 Mg PO DAILY PRN 12/14/15 Reported Vital Signs Weight (Kilograms): 106.82 Height (Feet): 5 Height (Inches): 9 Date Time Temp Pulse Resp B/P (MAP) Pulse Ox O2 Delivery O2 Flow Rate FiO2 06/11/17 08:29 37.0 90 20 155/95 (115) 97 Room Air Physical Exam General Appearance: WD/WN, no apparent distress Assessment and Plan COlonoscopy today
--- NOTE | 2017-06-11 09:27 | Discharge Instructions ---
Endoscopy Patient Instructions Date / Procedure(s) Performed June 11, 2017. Colonoscopy Allergy Information Coded Allergies: NUTS (Verified Allergy, Severe, ANAPHYLACTIC SHOCK, 06/08/17) Peanut (Verified Allergy, Severe, ANAPHYLACTIC, 06/08/17) Sulfa Drugs (Verified Allergy, Severe, SHORTNESS OF BREATH, 06/08/17) Animal Dander (Verified Allergy, Unknown, SOB HIVES, 06/08/17) CATS AND HORSES Fish (Verified Allergy, Unknown, VOMITTING, 06/08/17) Molds & Smuts (Verified Allergy, Unknown, SOB SNEEZING, 06/08/17) POLLEN (Verified Allergy, Unknown, RUNNY NOSE SOB, 06/08/17) [place] (Verified Adverse Reaction, Unknown, ITCHY MOUTH, 06/08/17) Uncoded Allergies: SEMEN (Allergy, Unknown, RASH, 10/10/16) Discharge Date / Findings June 11, 2017. normal appearing colon Medication Instructions Restart Stopped Medication(s): Ok to resume home medications Continue current medications Provider Instructions Activity Restrictions - No exercising or heavy lifting for 24 hours. - Do not drink alcohol the day of the procedure. - Do not drive a car or operate machinery until the day after the procedure. - Do not make any important decisions or sign important papers in 24 hours after the procedure. Following Day: - Return to full activity which may include returning to work/school. Diet Start your diet with liquids and light foods (jello, soup, juice, toast). Then eat your usual diet if not nauseated. Treatment For Common After Affects For mild abdominal pain, bloating, or excessive gas: - Rest - Eat lightly - Lie on right side Follow-Up Information Follow-up with DR. CARRIE ZEPEDA as scheduled Anesthesia Information What You Should Know You have had a procedure that required some medicine to reduce anxiety and discomfort. This treatment is called moderate sedation. After receiving the treatment, you may be sleepy, but you will be able to breathe on your own. The effects of the treatment may last for several hours. Follow these instructions along with Activity/Diet recommendations noted above: * Do NOT do anything where dizziness or clumsiness would be dangerous. * Rest quietly at home today, then you can be up and about tomorrow. * Have a responsible person stay with you the rest of today. * You may have had an I.V. today. If so, you may take the dressing off later today. Recommendations Call your doctor if: * Trouble breathing * Continuous vomiting for more than 24 hours * Temperature above 101 degrees * Severe abdominal pain or bloating * Pain not relieved by pain medicine ordered * There is increased drainage or redness from any incision * A large amount of rectal bleeding greater than 2-3 tablespoons. (If you had a polyp/s removed or have hemorrhoids, a small amount of blood - from the rectum is to be expected.) * You have any unanswered questions or concerns. IN THE EVENT OF A SERIOUS EMERGENCY, GO TO THE NEAREST EMERGENCY ROOM Your discharge instructions were prepared by provider Airam Sosa. Patient Instructions Signature Page Antoinette Henderson Patient (or Guardian) Signature/Date: I have read and understand the instructions given to me by my caregivers. Caregiver/RN/Doctor Signature/Date: The above-named patient and/or guardian has received patient instructions on this date. + Original Patient Signature Page (only) stays with chart. Please make copy for patient.
[2017-06-11 09:57] VITALS: BP 121/84; PULSE 79; O2SAT 100
--- NOTE | 2017-06-11 10:00 | Anesthesiology Progress Note ---
Anesthesia Post Op Note Date & Time June 11, 2017 at 10:00 Vital Signs Pain Intensity: 0 Vital Signs Past 12 Hours Date Time Temp Pulse Resp B/P (MAP) Pulse Ox O2 Delivery O2 Flow Rate FiO2 06/11/17 09:57 79 18 121/84 (96) 100 Room Air 06/11/17 09:42 78 18 112/74 (87) 98 Room Air 06/11/17 09:27 96 16 107/80 (89) 96 Room Air 06/11/17 08:29 37.0 90 20 155/95 (115) 97 Room Air Notes Mental Status: alert / awake / arousable, participated in evaluation Pt Amnestic to Procedure: Yes Nausea / Vomiting: adequately controlled Pain: adequately controlled Airway Patency, RR, SpO2: stable & adequate BP & HR: stable & adequate Hydration State: stable & adequate Anesthetic Complications: no major complications apparent
--- NOTE | 2017-06-11 15:46 | GI REPORT ---
Patient Name: Antoinette Henderson Procedure Date: 06/11/2017 9:04 AM Date of : 1985 Admit Type: Outpatient Age: 31 Gender: Female Attending MD: Airam Sosa DO Procedure: Colonoscopy Providers: Airam Sosa DO Referring MD: Roma Juarez Indications: High risk colon cancer surveillance: Ulcerative pancolitis Medicines: Propofol per Anesthesia Complications: No immediate complications. Estimated blood loss: Minimal. Estimated Blood Loss: Estimated blood loss: minimal. Procedure: Pre-Anesthesia Assessment: - Prior to the procedure, a History and Physical was performed, and patient medications, allergies and sensitivities were reviewed. The patient's tolerance of previous anesthesia was reviewed. - The risks and benefits of the procedure and the sedation options and risks were discussed with the patient. All questions were answered and informed consent was obtained. - Patient identification and proposed procedure were verified prior to the procedure by the physician and the nurse. The procedure was verified in the pre-procedure area in the procedure room. - Mental Status Examination: alert and oriented. Airway Examination: normal oropharyngeal airway and neck mobility. Respiratory Examination: clear to auscultation. CV Examination: normal. Abdominal Examination: bowel sounds present, abdomen soft and non-tender, no masses or organomegaly noted. - ASA Grade Assessment: II - A patient with mild systemic disease. After I obtained informed consent, the scope was passed under direct vision. Throughout the procedure, the patient's blood pressure, pulse, and oxygen saturations were monitored continuously. The scope was introduced through the anus and advanced to the terminal ileum. The colonoscopy was performed without difficulty. The patient tolerated the procedure well. The quality of the bowel preparation was good. Findings: The perianal and digital rectal examinations were normal. Pertinent negatives include normal sphincter tone and no palpable rectal lesions. The terminal ileum appeared normal. Normal mucosa was found in the entire colon. Biopsies were taken with a cold forceps for histology. Verification of patient identification for the specimen was done by the physician and nurse using the patient's name and date. Estimated blood loss was minimal. The retroflexed view of the distal rectum and anal verge was normal and showed no anal or rectal abnormalities. Impression: - The examined portion of the ileum was normal. - Normal mucosa in the entire examined colon. Biopsied. - The distal rectum and anal verge are normal on retroflexion view. Recommendation: - Continue present medications. - Return to primary care physician as previously scheduled. 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 - Discharge patient to home. - Await pathology results. Airam Sosa D.O. Airam Sosa, 06/11/2017 9:32:16 AM This report has been signed electronically. Note Initiated On: 06/11/2017 9:04 AM Number of Addenda: 0 I attest to the content of the Intraoperative Record and orders documented therein, exceptions below {[id number]}
== END | disposition home or self-care (01) ==
LOC: C.GI 08:16
PROVIDERS: ATTEND Internal Medicine
DX: K51.00 Ulcerative (chronic) pancolitis without complications (principal); J45.909 Unspecified asthma, uncomplicated; Z88.2 Allergy status to sulfonamides; Z79.899 Other long term (current) drug therapy; Z83.71 Family history of colonic polyps; Z91.010 Allergy to peanuts; Z91.018 Allergy to other foods